=== PATIENT | female | born 1945 | race Caucasian/White ===

== ENCOUNTER 2018-02-28 05:43 | Inpatient (IN) ==
[2018-02-27 10:42] LABS: Basophils # 0.1 10*3/uL (0.0-0.2); Basophils % 0.7 % (0.0-0.8); Eosinophils # 0.2 10*3/uL (0.0-0.87); Eosinophils % 3.4 % (0.00-10.9); Hematocrit 36.5 VOL% (35.7-47.0); Hemoglobin 11.6 GM/DL (12.0-16.0); Immature Granulocytes % 0.4 %; Immature Granulocytes Absolute 0.03 #; Lymphocytes # 1.4 10*3/uL (1.4-4.0); Lymphocytes % 19.6 % (21.3-54.2); Mean Corpuscular HGB Conc 31.8 GM/DL (32-36); Mean Corpuscular Hemoglobin 29 PG (27-34); Mean Corpuscular Volume 91.7 FL (87-102); Mean Platelet Volume 10.6 FL (9.6-12.0); Monocytes # 0.6 10*3/uL (0.11-0.8); Neutrophils # 4.8 10*3/uL (1.4-7.4); Neutrophils % 67.9 % (38.7-73.9); Platelet Count 312 T/CUMM (130-400); Red Blood Count 3.98 MC/CUMM (3.8-5.5); Red Cell Distribution Width 13.2 % (9.3-17.3); White Blood Count 7.1 T/CUMM (4-12)
[2018-02-27 10:52] LABS: PT Patient Result 11.2 SECS; Partial Thromboplastin Time 33.6 SECS (0-40)
[2018-02-27 10:53] LABS: Apearance,Urine CLEAR (Clear); Bacteria,Urine Occasional /HPF (Few); Bilirubin,Urine Negative (Negative); Blood, Urine Negative (Negative); Glucose,Urine (UA) Negative (Negative); Ketones,Urine Negative (Negative); Mucus,Urine Occasional /LPF (Occasional); Nitrite,Urine Negative (Negative); Protein,Urine Negative; RBC,Urine 1 /HPF (0-4); Squamous Epithelial Cell,Urine Occasional /HPF (0-10); Urine Color Yellow (Yellow); Urine Urobilinogen < 2.0 EU/DL (0.2-1.0); WBC,Urine 1 /HPF (0-6)
[2018-02-27 11:16] LABS: Calcium 8.7 MG/DL (8.5-10.1); Osmolality,Calculated 288.7 MOS/KG (273-304); Potassium 4.5 MMOL/L (3.5-5.1)
[~2018-02-28 05:43] MED LIST: CEFUROXIME INJ 1,500 MG in SYRINGE 1 EACH IV ONE; PAPAVERINE 60 MG/2 ML VIAL ONE; SODIUM CHLORIDE 0.9% 1,000 ML IV PRN; TISSUE ADHESIVE 1 EACH APPLICATOR TOP ONE; VANCOMYCIN 1,000 MG VIAL ONE
[2018-02-28] MEDS ORDERED: CEFUROXIME 1,500 MG VIAL ONE (05:49)
[2018-02-28] MEDS ORDERED: HEPARIN/NACL 0.9% 2 UNITS/ML 500 ML IV ONE (05:58)
[2018-02-28] MEDS ORDERED: MIDAZOLAM 10 MG/2 ML VIAL ONE ×2 (05:58)
[2018-02-28] MEDS ORDERED: NITROGLYCERIN DRIP 50 MG/250 ML BOTTLE IV ONE (05:59)
[2018-02-28] MEDS: LACTATED RINGERS 1,000 ML IV SCH (06:20)
[2018-02-28] MEDS ORDERED: AMINOCAPROIC ACID 5,000 MG/20 ML VIAL IV ONE (06:27)
[2018-02-28 07:51] LABS: ABG Base Excess -0.7 MMOL/L (-2.5-2.5); ABG HCO3 23.9 MMOL/L (20-26); ABG PCO2 30.7 MM HG (35-48); ABG PH 7.469 (7.35-7.45); ABG TCO2 20.1 MMOL/L (23-27); Glucose Heart Surgery 167 MG/DL (74-106); Ionized Calcium Arterial 1.08 MMOL/L (1.21-1.46); PCO2 Patient Temp Arterial 30.7 MMHG; PH Patient Temp Arterial 7.469; Patient Temperature 37 CELCIUS; Potassium Heart/CVR 3.7 MMOL/L (3.5-5.1); Sodium Heart/CVR 141 MMOL/L (135-145)
[2018-02-28 07:58] LABS: Apearance,Urine CLEAR (Clear); Bacteria,Urine Occasional /HPF (Few); Bilirubin,Urine Negative (Negative); Blood, Urine Negative (Negative); Glucose,Urine (UA) Negative (Negative); Hyaline Casts,Urine 1 /LPF (0-3); Ketones,Urine Negative (Negative); Nitrite,Urine Negative (Negative); Protein,Urine Negative; RBC,Urine 1 /HPF (0-4); Squamous Epithelial Cell,Urine Occasional /HPF (0-10); Urine Color Yellow (Yellow); Urine Specific Gravity 1.014 (1.001-1.035); Urine Urobilinogen < 2.0 EU/DL (0.2-1.0); WBC,Urine 1 /HPF (0-6)
[2018-02-28] MEDS ORDERED: PHENYLEPHRINE DRIP 0 MG/0 ML PREMIX IV ONE (08:42)
[2018-02-28] MEDS ORDERED: NITROPRUSSIDE 50 MG/2 ML VIAL ONE (08:42)
[2018-02-28] MEDS ORDERED: CALCIUM CHLORIDE 1,000 MG/10 ML SYRINGE IV ONE (08:42)
[2018-02-28 08:56] LABS: Hematocrit Heart Surgery 19.4 PERCENT (37-47); PCO2 Patient Temp Venous 28.8 MM HG; PH Patient Temp Venous 7.513; PO2 Patient Temp Venous 32.5 MM HG; Potassium Heart/CVR 4.5 MMOL/L (3.5-5.1); VBG Base Excess 0.5 MEQ/L (0-4); VBG HCO3 24.6 MEQ/L (24-28); VBG PCO2 31.7 MMHG (41-51); VBG PH 7.482; VBG PO2 37.4 MMHG (17-40)
[2018-02-28 08:57] LABS: Hemoglobin Heart Surgery 6.2 G/DL (12.0-16.0)
[2018-02-28 09:29] LABS: PCO2 Patient Temp Venous 32.3 MM HG; PH Patient Temp Venous 7.471; PO2 Patient Temp Venous 33.3 MM HG; Potassium Heart/CVR 4.9 MMOL/L (3.5-5.1); VBG Base Excess 0.2 MEQ/L (0-4); VBG HCO3 24.3 MEQ/L (24-28); VBG Oxygen Saturation 67.3 %; VBG PCO2 32.3 MMHG (41-51); VBG PH 7.471; VBG PO2 33.3 MMHG (17-40)
[2018-02-28 09:31] LABS: Hemoglobin Heart Surgery 6.4 G/DL (12.0-16.0)
[2018-02-28] MEDS ORDERED: ALBUMIN 5% 12.5 GM/250 ML VIAL IV ONE (09:46)
[2018-02-28] MEDS ORDERED: THROMBIN TOPICAL (RECOMBINANT) 5,000 UNIT VIAL TOP ONE (09:49)
[2018-02-28 09:56] LABS: ABG Base Excess -1.3 MMOL/L (-2.5-2.5); ABG HCO3 23.4 MMOL/L (20-26); ABG PCO2 25.1 MM HG (35-48); ABG PH 7.524 (7.35-7.45); ABG TCO2 19.1 MMOL/L (23-27); Glucose Heart Surgery 309 MG/DL (74-106); Hematocrit Heart Surgery 26.3 PERCENT (37-47); Hemoglobin Heart Surgery 8.5 G/DL (12.0-16.0); Ionized Calcium Arterial 1.04 MMOL/L (1.21-1.46); PCO2 Patient Temp Arterial 25.1 MMHG; PH Patient Temp Arterial 7.524; Patient Temperature 37 CELCIUS; Potassium Heart/CVR 4.6 MMOL/L (3.5-5.1); Sodium Heart/CVR 131 MMOL/L (135-145)
[2018-02-28] MEDS ORDERED: ALBUMIN 25% 25 GM/100 ML VIAL IV ONE (09:57)
[2018-02-28] MEDS ORDERED: methylPREDNISolone SOD SUC 1,000 MG/8 ML VIAL ONE (09:57)
[2018-02-28] MEDS ORDERED: DEXTROSE 5% KCL 20 MEQ 20 MEQ/1,000 ML BAG IV ONE (09:57)
[2018-02-28] MEDS ORDERED: HEPARIN 10,000 UNIT/10 ML VIAL ONE (09:57)
[2018-02-28] MEDS ORDERED: MAGNESIUM SULFATE 10 GM/20 ML VIAL IV ONE (09:57)
[2018-02-28] MEDS ORDERED: SODIUM BICARBONATE 50 MEQ/50 ML SYRINGE IV ONE (09:57)
[2018-02-28] MEDS ORDERED: MANNITOL 12.5 GM/50 ML VIAL IV ONE (09:58)
[2018-02-28] MEDS ORDERED: PROTAMINE SULFATE 50 MG/5 ML VIAL IV ONE (09:58)
[2018-02-28] MEDS ORDERED: FUROSEMIDE 20 MG/2 ML VIAL ONE (09:58)
[2018-02-28] MEDS ORDERED: SODIUM CHLORIDE 0.9% 250 ML IV PRN (10:38)
[2018-02-28] MEDS ORDERED: ONDANSETRON 4 MG/2 ML VIAL IV PRN (10:38)
[2018-02-28] MEDS ORDERED: INSULIN REGULAR 100 UNIT/ML IV PRN (10:38)
[2018-02-28] MEDS ORDERED: CALCIUM CHLORIDE 1,000 MG/10 ML SYRINGE IV PRN (10:38)
[2018-02-28] MEDS ORDERED: CHLORHEXIDINE 4% SOLN 118 ML BOTTLE TOP PRN (10:38)
[2018-02-28] MEDS ORDERED: MORPHINE 10 MG/1 ML VIAL IV PRN (10:38)
[2018-02-28] MEDS ORDERED: ACETAMINOPHEN 650 MG SUPP RECTAL PRN (10:38)
[2018-02-28] MEDS ORDERED: MIDAZOLAM 2 MG/2 ML VIAL IV PRN (10:38)
[2018-02-28] MEDS ORDERED: MAGNESIUM SULF RIDER 4 GM in PREMIX 1 EACH IV PRN (10:38)
[2018-02-28] MEDS ORDERED: DEXTROSE 50% 25 GM/50 ML VIAL IV PRN ×2 (10:38)
[2018-02-28] MEDS: SODIUM CHLORIDE 0.45% 1,000 ML IV SCH ×2 (10:40)
[2018-02-28] MEDS ORDERED: ePHEDrine 50 MG/ML AMP ONE (10:49)
[2018-02-28] MEDS ORDERED: PHENYLEPHRINE 1 MG/10 ML SYRINGE IV ONE (10:49)
[2018-02-28] MEDS ORDERED: SEVOFLURANE 1 UNIT/15 MINUTE INH ONE (10:49)
[2018-02-28] MEDS ORDERED: PHENYLEPHRINE 10 MG/1 ML VIAL IV ONE (10:49)
[2018-02-28] MEDS ORDERED: ETOMIDATE 40 MG/20 ML VIAL IV ONE (10:49)
[2018-02-28] MEDS ORDERED: LACTATED RINGERS 1,000 ML IV ONE (10:50)
[2018-02-28] MEDS ORDERED: ROCURONIUM 100 MG/10 ML VIAL IV ONE (10:50)
[2018-02-28] MEDS ORDERED: hydrALAZINE 20 MG/1 ML VIAL ONE (10:51)
[2018-02-28] MEDS ORDERED: SODIUM CHLORIDE 0.9% 1,000 ML IV ONE (10:51)
[2018-02-28] MEDS ORDERED: SODIUM CHLORIDE 0.9% 500 ML IV ONE (10:51)
[2018-02-28] MEDS ORDERED: CALCIUM CHLORIDE 1,000 MG/10 ML VIAL IV ONE (10:51)
[2018-02-28] MEDS ORDERED: INSULIN REGULAR DRIP 100 ML IV SCH (11:00)
[2018-02-28 11:11] LABS: ABG Base Excess -1.8 MMOL/L (-2.5-2.5); ABG HCO3 22.9 MMOL/L (20-26); ABG Oxygen Saturation 98.9 % (95-100); ABG PCO2 39.8 MM HG (35-48); ABG PH 7.374 (7.35-7.45); ABG TCO2 20.9 MMOL/L (23-27); Glucose Heart Surgery 283 MG/DL (74-106); Hematocrit Heart Surgery 33.5 PERCENT (37-47); Hemoglobin Heart Surgery 10.9 G/DL (12.0-16.0); Potassium Heart/CVR 3.9 MMOL/L (3.5-5.1)
[2018-02-28 11:17] LABS: Basophils % 0.3 % (0.0-0.8); Eosinophils # 0.1 10*3/uL (0.0-0.87); Eosinophils % 0.9 % (0.00-10.9); Hematocrit 32.5 VOL% (35.7-47.0); Hemoglobin 10.3 GM/DL (12.0-16.0); Immature Granulocytes % 0.4 %; Immature Granulocytes Absolute 0.04 #; Lymphocytes % 10.3 % (21.3-54.2); Mean Corpuscular HGB Conc 31.7 GM/DL (32-36); Mean Corpuscular Hemoglobin 29 PG (27-34); Mean Corpuscular Volume 91.3 FL (87-102); Monocytes # 0.3 10*3/uL (0.11-0.8); Neutrophils # 8.5 10*3/uL (1.4-7.4); Neutrophils % 85.1 % (38.7-73.9); Platelet Count 257 T/CUMM (130-400); Red Blood Count 3.56 MC/CUMM (3.8-5.5)
[2018-02-28] MEDS ORDERED: NITROPRUSSIDE 100 MG in DEXTROSE 5% 250 ML IV PRN (11:17)
[2018-02-28 11:29] LABS: Blood Urea Nitrogen 15 MG/DL (7-18); Calcium 9.8 MG/DL (8.5-10.1); Glucose 277 MG/DL (74-106); Potassium 3.9 MMOL/L (3.5-5.1); Sodium 136 MMOL/L (136-145)
[2018-02-28 11:34] LABS: INR 1.1; PT Patient Result 12.3 SECS
[2018-02-28 11:35] LABS: Lactic Acid 2.8 MMOL/L (0.4-2.0)
[2018-02-28] MEDS: ALBUMIN 5% 12.5 GM in PREMIX 1 EACH IV PRN ×4 (11:35→13:20)
[2018-02-28] MEDS: POTASSIUM CHLORIDE RIDER 20 MEQ in PREMIX 1 EACH IV PRN ×3 (11:58→20:21)
[2018-02-28] MEDS ORDERED: ASPIRIN 325 MG TABLET NG ONE (12:12)
[2018-02-28] MEDS: POTASSIUM CHLORIDE RIDER 10 MEQ in PREMIX 1 EACH IV PRN (13:06)
[2018-02-28] MEDS: MORPHINE 4 MG/1 ML VIAL IV PRN (13:25)
[2018-02-28 18:54] LABS: ABG Base Excess 0.9 MMOL/L (-2.5-2.5); ABG HCO3 25.2 MMOL/L (20-26); ABG Oxygen Saturation 99.8 % (95-100); ABG PCO2 36.5 MM HG (35-48); ABG TCO2 22.8 MMOL/L (23-27); Glucose Heart Surgery 138 MG/DL (74-106); Hematocrit Heart Surgery 27.4 PERCENT (37-47); Hemoglobin Heart Surgery 8.8 G/DL (12.0-16.0); Potassium Heart/CVR 3.2 MMOL/L (3.5-5.1)
[2018-02-28] MEDS: CEFUROXIME INJ 1,500 MG in SYRINGE 1 EACH IV SCH (20:51)
[2018-02-28] MEDS: CHLORHEXIDINE 0.12% ORAL RINSE 60 ML BOTTLE SWISH/SPIT SCH (20:54)
[2018-03-01] MEDS: MORPHINE 4 MG/1 ML VIAL IV PRN ×3 (00:09→19:02)
[2018-03-01] MEDS: SODIUM CHLORIDE 0.45% 1,000 ML IV SCH ×2 (00:12→10:14)
[2018-03-01 03:20] LABS: Basophils % 0.1 % (0.0-0.8); Hematocrit 26.2 VOL% (35.7-47.0); Hemoglobin 8.3 GM/DL (12.0-16.0); Immature Granulocytes % 0.3 %; Immature Granulocytes Absolute 0.05 #; Lymphocytes # 0.7 10*3/uL (1.4-4.0); Mean Corpuscular HGB Conc 31.7 GM/DL (32-36); Mean Corpuscular Hemoglobin 29 PG (27-34); Mean Corpuscular Volume 91.6 FL (87-102); Mean Platelet Volume 11.2 FL (9.6-12.0); Monocytes # 0.7 10*3/uL (0.11-0.8); Monocytes % 4.6 % (1.7-12.7); Neutrophils # 13.2 10*3/uL (1.4-7.4); Platelet Count 233 T/CUMM (130-400); Red Blood Count 2.86 MC/CUMM (3.8-5.5); Red Cell Distribution Width 14.6 % (9.3-17.3); White Blood Count 14.7 T/CUMM (4-12)
[2018-03-01 03:36] LABS: Calcium 7.9 MG/DL (8.5-10.1); Osmolality,Calculated 279.5 MOS/KG (273-304); Potassium 3.8 MMOL/L (3.5-5.1)
[2018-03-01] MEDS: POTASSIUM CHLORIDE RIDER 20 MEQ in PREMIX 1 EACH IV PRN (05:16)
[2018-03-01] MEDS: MAGNESIUM SULF RIDER 2 GM in PREMIX 1 EACH IV PRN ×4 (05:25→11:27)
[2018-03-01] MEDS: CEFUROXIME INJ 1,500 MG in SYRINGE 1 EACH IV SCH ×2 (05:30→19:01)
[2018-03-01] MEDS: LACTATED RINGERS 1,000 ML IV SCH (05:30)
[2018-03-01] MEDS: POTASSIUM CHLORIDE RIDER 10 MEQ in PREMIX 1 EACH IV PRN (05:54)
[2018-03-01] MEDS: CHLORHEXIDINE 0.12% ORAL RINSE 60 ML BOTTLE SWISH/SPIT SCH ×2 (09:36→21:33)
[2018-03-01] MEDS: PANTOPRAZOLE 40 MG VIAL IV SCH (09:36)
[2018-03-01] MEDS: FUROSEMIDE 40 MG TABLET PO SCH (09:37)
[2018-03-01] MEDS: ASPIRIN EC 325 MG TABLET PO SCH (09:37)
[2018-03-01] MEDS ORDERED: diphenhydrAMINE CAP 25 MG CAPSULE PO PRN (10:17)
[2018-03-01] MEDS: CLOPIDOGREL 75 MG TABLET PO SCH (11:25)
[2018-03-01] MEDS: METOPROLOL TARTRATE 25 MG TABLET PO SCH ×2 (11:25→21:33)
[2018-03-01] MEDS: ATORVASTATIN 40 MG TABLET PO SCH ×2 (11:25→21:33)
[2018-03-01] MEDS: INSULIN REGULAR 100 UNIT/ML SUBCUT SCH ×3 (11:54→21:33)
[2018-03-02] MEDS: MORPHINE 4 MG/1 ML VIAL IV PRN (02:42)
[2018-03-02 04:44] LABS: Basophils % 0.1 % (0.0-0.8); Eosinophils % 0.2 % (0.00-10.9); Hematocrit 29.7 VOL% (35.7-47.0); Hemoglobin 9.3 GM/DL (12.0-16.0); Immature Granulocytes % 0.5 %; Immature Granulocytes Absolute 0.09 #; Mean Corpuscular HGB Conc 31.3 GM/DL (32-36); Mean Corpuscular Hemoglobin 29 PG (27-34); Mean Platelet Volume 11.7 FL (9.6-12.0); Monocytes # 1.4 10*3/uL (0.11-0.8); Monocytes % 8.8 % (1.7-12.7); Neutrophils # 13.8 10*3/uL (1.4-7.4); Neutrophils % 84.4 % (38.7-73.9); Platelet Count 266 T/CUMM (130-400); Red Blood Count 3.23 MC/CUMM (3.8-5.5); Red Cell Distribution Width 14.5 % (9.3-17.3); White Blood Count 16.4 T/CUMM (4-12)
[2018-03-02 04:58] LABS: Calcium 8.3 MG/DL (8.5-10.1); Osmolality,Calculated 281.7 MOS/KG (273-304); Potassium 4.2 MMOL/L (3.5-5.1)
[2018-03-02] MEDS: LACTATED RINGERS 1,000 ML IV SCH (05:02)
[2018-03-02 05:03] LABS: Risk Ratio 3.1; VLDL CHOLESTEROL 27.8 MG/DL
[2018-03-02] MEDS: INSULIN REGULAR 100 UNIT/ML SUBCUT SCH ×4 (09:07→20:11)
[2018-03-02] MEDS: FUROSEMIDE 40 MG TABLET PO SCH (09:08)
[2018-03-02] MEDS: ASPIRIN EC 325 MG TABLET PO SCH (09:08)
[2018-03-02] MEDS: INSULIN GLARGINE 100 UNIT/ML SUBCUT SCH (09:08)
[2018-03-02] MEDS: OMEGA 3 ACID ETHYL ESTERS 1 GM CAPSULE PO SCH (09:08)
[2018-03-02] MEDS: PANTOPRAZOLE 40 MG VIAL IV SCH (09:08)
[2018-03-02] MEDS: METOPROLOL TARTRATE 25 MG TABLET PO SCH ×2 (09:09→22:18)
[2018-03-02] MEDS: CLOPIDOGREL 75 MG TABLET PO SCH (09:09)
[2018-03-02] MEDS: CHLORHEXIDINE 0.12% ORAL RINSE 60 ML BOTTLE SWISH/SPIT SCH ×2 (09:13→21:23)
[2018-03-02] MEDS: NITROFURANTOIN MACRO/MONO 100 MG CAPSULE PO SCH ×2 (10:38→22:21)
[2018-03-02] MEDS: DOCUSATE SODIUM 100 MG CAPSULE PO SCH ×2 (10:38→21:23)
[2018-03-02] MEDS: BISACODYL 5 MG TABLET PO SCH (10:38)
[2018-03-02] MEDS: CARVEDILOL 6.25 MG TABLET PO SCH (21:23)
[2018-03-02] MEDS: ATORVASTATIN 40 MG TABLET PO SCH (21:23)
[2018-03-03 02:34] LABS: Basophils % 0.3 % (0.0-0.8); Eosinophils # 0.2 10*3/uL (0.0-0.87); Eosinophils % 1.4 % (0.00-10.9); Hematocrit 30.2 VOL% (35.7-47.0); Hemoglobin 9.6 GM/DL (12.0-16.0); Immature Granulocytes % 0.5 %; Immature Granulocytes Absolute 0.08 #; Lymphocytes # 1.6 10*3/uL (1.4-4.0); Lymphocytes % 10.8 % (21.3-54.2); Mean Corpuscular HGB Conc 31.8 GM/DL (32-36); Mean Corpuscular Hemoglobin 29 PG (27-34); Mean Corpuscular Volume 92.4 FL (87-102); Mean Platelet Volume 11.3 FL (9.6-12.0); Monocytes # 1.5 10*3/uL (0.11-0.8); Monocytes % 10.1 % (1.7-12.7); Neutrophils # 11.4 10*3/uL (1.4-7.4); Neutrophils % 76.9 % (38.7-73.9); Platelet Count 249 T/CUMM (130-400); Red Blood Count 3.27 MC/CUMM (3.8-5.5); Red Cell Distribution Width 13.9 % (9.3-17.3); White Blood Count 14.8 T/CUMM (4-12)
[2018-03-03 03:20] LABS: Calcium 8.4 MG/DL (8.5-10.1); Osmolality,Calculated 282.5 MOS/KG (273-304); Potassium 3.6 MMOL/L (3.5-5.1)
[2018-03-03] MEDS: LACTATED RINGERS 1,000 ML IV SCH (05:15)
[2018-03-03] MEDS: PANTOPRAZOLE 40 MG VIAL IV SCH (09:33)
[2018-03-03] MEDS: INSULIN REGULAR 100 UNIT/ML SUBCUT SCH ×3 (09:33→16:01)
[2018-03-03] MEDS: INSULIN GLARGINE 100 UNIT/ML SUBCUT SCH (09:33)
[2018-03-03] MEDS: CHLORHEXIDINE 0.12% ORAL RINSE 60 ML BOTTLE SWISH/SPIT SCH ×2 (09:34→20:56)
[2018-03-03] MEDS: ASPIRIN EC 325 MG TABLET PO SCH (09:34)
[2018-03-03] MEDS: OMEGA 3 ACID ETHYL ESTERS 1 GM CAPSULE PO SCH (09:34)
[2018-03-03] MEDS: NITROFURANTOIN MACRO/MONO 100 MG CAPSULE PO SCH ×2 (09:34→21:00)
[2018-03-03] MEDS: CARVEDILOL 6.25 MG TABLET PO SCH ×2 (09:34→20:55)
[2018-03-03] MEDS: BISACODYL 5 MG TABLET PO SCH (09:34)
[2018-03-03] MEDS: DOCUSATE SODIUM 100 MG CAPSULE PO SCH ×2 (09:34→20:58)
[2018-03-03] MEDS: FUROSEMIDE 40 MG TABLET PO SCH (09:34)
[2018-03-03] MEDS: CLOPIDOGREL 75 MG TABLET PO SCH (09:34)
[2018-03-03] MEDS: ATORVASTATIN 40 MG TABLET PO SCH (20:55)
[2018-03-04] MEDS: NITROFURANTOIN MACRO/MONO 100 MG CAPSULE PO SCH ×3 (00:51→22:15)
[2018-03-04] MEDS: INSULIN REGULAR 100 UNIT/ML SUBCUT SCH ×5 (00:51→20:59)
[2018-03-04] MEDS: OMEGA 3 ACID ETHYL ESTERS 1 GM CAPSULE PO SCH (09:34)
[2018-03-04] MEDS: CLOPIDOGREL 75 MG TABLET PO SCH (09:34)
[2018-03-04] MEDS: CARVEDILOL 6.25 MG TABLET PO SCH ×2 (09:34→21:00)
[2018-03-04] MEDS: ASPIRIN EC 325 MG TABLET PO SCH (09:34)
[2018-03-04] MEDS: FUROSEMIDE 40 MG TABLET PO SCH (09:34)
[2018-03-04] MEDS: PANTOPRAZOLE 40 MG VIAL IV SCH (09:36)
[2018-03-04] MEDS: INSULIN GLARGINE 100 UNIT/ML SUBCUT SCH (09:36)
[2018-03-04] MEDS: LACTATED RINGERS 1,000 ML IV SCH (09:38)
[2018-03-04] MEDS: DOCUSATE SODIUM 100 MG CAPSULE PO SCH ×2 (09:38→20:59)
[2018-03-04] MEDS: BISACODYL 5 MG TABLET PO SCH (09:39)
[2018-03-04] MEDS: CHLORHEXIDINE 0.12% ORAL RINSE 60 ML BOTTLE SWISH/SPIT SCH ×2 (10:04→21:00)
[2018-03-04] MEDS: CIPROFLOXACIN 500 MG TABLET PO SCH ×2 (16:40→21:00)
[2018-03-04] MEDS: ATORVASTATIN 40 MG TABLET PO SCH (20:59)
[2018-03-05 05:07] LABS: Basophils % 0.3 % (0.0-0.8); Eosinophils # 0.3 10*3/uL (0.0-0.87); Eosinophils % 3.1 % (0.00-10.9); Hematocrit 27.3 VOL% (35.7-47.0); Hemoglobin 8.6 GM/DL (12.0-16.0); Immature Granulocytes % 0.2 %; Immature Granulocytes Absolute 0.02 #; Lymphocytes # 1.5 10*3/uL (1.4-4.0); Lymphocytes % 15.6 % (21.3-54.2); Mean Corpuscular HGB Conc 31.5 GM/DL (32-36); Mean Corpuscular Hemoglobin 29 PG (27-34); Mean Corpuscular Volume 91.6 FL (87-102); Mean Platelet Volume 11.5 FL (9.6-12.0); Monocytes # 1.1 10*3/uL (0.11-0.8); Monocytes % 11.6 % (1.7-12.7); Neutrophils # 6.6 10*3/uL (1.4-7.4); Neutrophils % 69.2 % (38.7-73.9); Platelet Count 284 T/CUMM (130-400); Red Blood Count 2.98 MC/CUMM (3.8-5.5); Red Cell Distribution Width 13.2 % (9.3-17.3); White Blood Count 9.6 T/CUMM (4-12)
[2018-03-05 06:00] LABS: Calcium 8.1 MG/DL (8.5-10.1); Osmolality,Calculated 283.4 MOS/KG (273-304); Potassium 2.9 MMOL/L (3.5-5.1)
[2018-03-05] MEDS ORDERED: POTASSIUM CHLORIDE 20 MEQ TABLET PO ONE ×3 (08:00→12:00)
[2018-03-05] MEDS: ASPIRIN EC 325 MG TABLET PO SCH (08:45)
[2018-03-05] MEDS: CIPROFLOXACIN 500 MG TABLET PO SCH ×2 (08:45→21:53)
[2018-03-05] MEDS: CHLORHEXIDINE 0.12% ORAL RINSE 60 ML BOTTLE SWISH/SPIT SCH ×2 (08:46→21:51)
[2018-03-05] MEDS: DOCUSATE SODIUM 100 MG CAPSULE PO SCH ×2 (08:46→21:53)
[2018-03-05] MEDS: CLOPIDOGREL 75 MG TABLET PO SCH (08:46)
[2018-03-05] MEDS: FUROSEMIDE 40 MG TABLET PO SCH (08:46)
[2018-03-05] MEDS: CARVEDILOL 6.25 MG TABLET PO SCH ×2 (08:46→21:53)
[2018-03-05] MEDS: OMEGA 3 ACID ETHYL ESTERS 1 GM CAPSULE PO SCH (08:46)
[2018-03-05] MEDS: NITROFURANTOIN MACRO/MONO 100 MG CAPSULE PO SCH ×3 (08:46→21:52)
[2018-03-05] MEDS: PANTOPRAZOLE 40 MG TABLET PO SCH (08:46)
[2018-03-05] MEDS: INSULIN REGULAR 100 UNIT/ML SUBCUT SCH ×4 (08:47→21:52)
[2018-03-05] MEDS: INSULIN GLARGINE 100 UNIT/ML SUBCUT SCH (08:47)
[2018-03-05] MEDS: BISACODYL 5 MG TABLET PO SCH (08:47)
[2018-03-05] MEDS: LACTATED RINGERS 1,000 ML IV SCH (09:25)
[2018-03-05] MEDS ORDERED: MAGNESIUM SULF RIDER 2 GM in PREMIX 1 EACH IV ONE (11:38)
[2018-03-05] MEDS: ATORVASTATIN 40 MG TABLET PO SCH (21:53)
[2018-03-06 04:37] LABS: Basophils # 0.1 10*3/uL (0.0-0.2); Basophils % 0.6 % (0.0-0.8); Eosinophils # 0.4 10*3/uL (0.0-0.87); Eosinophils % 3.8 % (0.00-10.9); Hematocrit 29.9 VOL% (35.7-47.0); Hemoglobin 9.5 GM/DL (12.0-16.0); Immature Granulocytes % 0.5 %; Immature Granulocytes Absolute 0.05 #; Lymphocytes # 2.1 10*3/uL (1.4-4.0); Lymphocytes % 20.3 % (21.3-54.2); Mean Corpuscular HGB Conc 31.8 GM/DL (32-36); Mean Corpuscular Hemoglobin 29 PG (27-34); Mean Corpuscular Volume 91.7 FL (87-102); Monocytes # 1.2 10*3/uL (0.11-0.8); Monocytes % 11.6 % (1.7-12.7); Neutrophils # 6.6 10*3/uL (1.4-7.4); Neutrophils % 63.2 % (38.7-73.9); Platelet Count 323 T/CUMM (130-400); Red Blood Count 3.26 MC/CUMM (3.8-5.5); Red Cell Distribution Width 13.3 % (9.3-17.3); White Blood Count 10.5 T/CUMM (4-12)
[2018-03-06 04:53] LABS: Calcium 8.4 MG/DL (8.5-10.1); Osmolality,Calculated 286.4 MOS/KG (273-304); Potassium 3.7 MMOL/L (3.5-5.1)
[2018-03-06 07:53] VITALS: BP 146/87
[2018-03-06] MEDS: FUROSEMIDE 40 MG TABLET PO SCH (09:43)
[2018-03-06] MEDS: ASPIRIN EC 325 MG TABLET PO SCH (09:43)
[2018-03-06] MEDS: INSULIN GLARGINE 100 UNIT/ML SUBCUT SCH (09:43)
[2018-03-06] MEDS: PANTOPRAZOLE 40 MG TABLET PO SCH (09:43)
[2018-03-06] MEDS: OMEGA 3 ACID ETHYL ESTERS 1 GM CAPSULE PO SCH (09:43)
[2018-03-06] MEDS: CLOPIDOGREL 75 MG TABLET PO SCH (09:43)
[2018-03-06] MEDS: CARVEDILOL 6.25 MG TABLET PO SCH (09:43)
[2018-03-06] MEDS: INSULIN REGULAR 100 UNIT/ML SUBCUT SCH (09:47)
[2018-03-06] MEDS: DOCUSATE SODIUM 100 MG CAPSULE PO SCH (09:48)
[2018-03-06] MEDS: BISACODYL 5 MG TABLET PO SCH (09:48)
[2018-03-06] MEDS: LACTATED RINGERS 1,000 ML IV SCH (09:49)
[2018-03-06] MEDS: CHLORHEXIDINE 0.12% ORAL RINSE 60 ML BOTTLE SWISH/SPIT SCH (09:49)
[2018-03-06] MEDS: NITROFURANTOIN MACRO/MONO 100 MG CAPSULE PO SCH (09:52)
== END 2018-03-06 13:03 | disposition swing bed (61) | DRG 236 ==
LOC: N.SDSINP 05:43 → N.CVR 07:59 → N.ICU 03-01 06:57 → N.TELES 03-01 14:00
PROVIDERS: ADMIT Thoracic Surgery (Cardiothoracic Vascular Surgery); ATTEND Thoracic Surgery (Cardiothoracic Vascular Surgery)

== ENCOUNTER 2018-11-18 16:07 | Inpatient (IN) ==
[2018-11-18 17:05] LABS: Basophils # 0.1 10*3/uL (0.0-0.2); Basophils % 0.8 % (0.0-0.8); Eosinophils # 0.1 10*3/uL (0.0-0.87); Eosinophils % 1.2 % (0.00-10.9); Immature Granulocytes % 0.2 %; Immature Granulocytes Absolute 0.02 #; Lymphocytes # 1.2 10*3/uL (1.4-4.0); Mean Corpuscular HGB Conc 32.1 GM/DL (32-36); Mean Corpuscular Volume 92.7 FL (87-102); Mean Platelet Volume 10.9 FL (9.6-12.0); Monocytes % 6.3 % (1.7-12.7); Neutrophils % 78.5 % (38.7-73.9); Platelet Count 275 T/CUMM (130-400); Red Blood Count 5.72 MC/CUMM (3.8-5.5); Red Cell Distribution Width 14.6 % (9.3-17.3); White Blood Count 8.8 T/CUMM (4-12)
[2018-11-18 17:13] LABS: Apearance,Urine CLOUDY (Clear); Bacteria,Urine Many /HPF (Few); Bilirubin,Urine Negative (Negative); Blood, Urine Small mg/dL (Negative); Glucose,Urine (UA) Negative (Negative); Ketones,Urine 20 mg/dL (Negative); Mucus,Urine Occasional /LPF (Occasional); Nitrite,Urine Negative (Negative); Protein,Urine 30 MG/DL; RBC,Urine 2 /HPF (0-4); Squamous Epithelial Cell,Urine Occasional /HPF (0-10); Urine Color Yellow (Yellow); Urine Specific Gravity 1.025 (1.001-1.035); Urine Urobilinogen < 2.0 EU/DL (0.2-1.0); WBC,Urine 54 /HPF (0-6)
[2018-11-18 17:19] LABS: Barbiturates Screen,Urine Negative (Negative); Benzodiazepines Screen,Urine Negative (Negative); Cannabinoid Screen,Urine Negative (Negative); Opiate Screen,Urine Negative (Negative); Phencyclidine Screen,Urine Negative (Negative)
[2018-11-18 17:37] LABS: Alanine Aminotransferase 24 U/L (13-56); Albumin 4.2 G/DL (3.4-5.0); Alkaline Phosphatase 81 U/L (45-117); Aspartate Amino Transferase 25 U/L (0-37); Blood Urea Nitrogen 35 MG/DL (7-18); Glucose 145 MG/DL (74-106); Osmolality,Calculated 287.5 MOS/KG (273-304); Thyroid Stimulating Hormone 0.683 uIU/ml (0.358-3.74); Total Protein 8.8 G/DL (6.4-8.3); Troponin I < 0.015 NG/ML (0.00-0.045)
[2018-11-18] MEDS ORDERED: LEVOFLOXACIN INJ 750 MG in PREMIX 1 EACH IV STA (18:00)
[2018-11-18 18:06] LABS: PT Patient Result 10.9 SECS; Partial Thromboplastin Time 22.5 SECS (0-40)
[2018-11-18] MEDS ORDERED: DOXYCYCLINE HYCLATE INJ 100 MG in SODIUM CHLORIDE 0.9% 100 ML IV STA (18:46)
[2018-11-18] MEDS ORDERED: methylPREDNISolone SOD SUC 125 MG/2 ML VIAL ONE (18:46)
[2018-11-18] MEDS ORDERED: methylPREDNISolone SOD SUC 125 MG/2 ML VIAL IV STA (18:54)
[2018-11-18] MEDS ORDERED: GLUCAGON 1 MG VIAL IM PRN (19:19)
[2018-11-18] MEDS ORDERED: guaiFENesin/DM ER 600-30 MG TABLET PO PRN (19:19)
[2018-11-18] MEDS ORDERED: ONDANSETRON 4 MG/2 ML VIAL IV PRN (19:19)
[2018-11-18] MEDS ORDERED: diphenhydrAMINE CAP 25 MG CAPSULE PO PRN (19:19)
[2018-11-18] MEDS ORDERED: DEXTROSE 50% 25 GM/50 ML VIAL IV PRN (19:19)
[2018-11-18] MEDS ORDERED: DOCUSATE SODIUM 100 MG CAPSULE PO PRN (19:19)
[2018-11-18] MEDS ORDERED: ZALEPLON 5 MG CAPSULE PO PRN (19:19)
[2018-11-18] MEDS: INSULIN LISPRO 100 UNIT/ML SUBCUT SCH (21:03)
[2018-11-18] MEDS ORDERED: hydrALAZINE 20 MG/1 ML VIAL IV ONE (21:14)
[2018-11-18] MEDS ORDERED: SODIUM CHLORIDE 0.9% 500 ML IV ONE (21:14)
[2018-11-18] MEDS: ENOXAPARIN 40 MG/0.4 ML SYRINGE SUBCUT SCH (21:23)
[2018-11-18] MEDS: SODIUM CHLORIDE 0.9% 1,000 ML IV SCH (21:23)
[2018-11-18] MEDS: POTASSIUM CHLORIDE 20 MEQ TABLET PO SCH (22:18)
[2018-11-19 06:38] LABS: Hematocrit 45.2 VOL% (35.7-47.0); Hemoglobin 14.9 GM/DL (12.0-16.0); Immature Granulocytes % 0.2 %; Immature Granulocytes Absolute 0.01 #; Lymphocytes # 0.6 10*3/uL (1.4-4.0); Lymphocytes % 11.1 % (21.3-54.2); Mean Corpuscular Volume 90.6 FL (87-102); Mean Platelet Volume 11.6 FL (9.6-12.0); Monocytes % 2.4 % (1.7-12.7); Neutrophils % 86.3 % (38.7-73.9); Platelet Count 244 T/CUMM (130-400); Red Blood Count 4.99 MC/CUMM (3.8-5.5); Red Cell Distribution Width 14.6 % (9.3-17.3); White Blood Count 5.5 T/CUMM (4-12)
[2018-11-19 07:08] LABS: Albumin 3.6 G/DL (3.4-5.0); Bilirubin,Total 0.5 MG/DL (0.2-1.0); Calcium 9.1 MG/DL (8.5-10.1); Osmolality,Calculated 289.4 MOS/KG (273-304); Total Protein 7.3 G/DL (6.4-8.3)
[2018-11-19] MEDS: POTASSIUM CHLORIDE 20 MEQ TABLET PO SCH ×2 (08:26→20:21)
[2018-11-19] MEDS: ACETAMINOPHEN 325 MG TABLET PO PRN (08:26)
[2018-11-19] MEDS: DOXYCYCLINE HYCLATE INJ 100 MG in SODIUM CHLORIDE 0.9% 100 ML IV SCH ×2 (08:27→20:22)
[2018-11-19] MEDS: PANTOPRAZOLE 40 MG TABLET PO SCH (08:28)
[2018-11-19] MEDS: INSULIN LISPRO 100 UNIT/ML SUBCUT SCH ×4 (08:28→20:23)
[2018-11-19] MEDS: SODIUM CHLORIDE 0.9% 1,000 ML IV SCH (10:02)
[2018-11-19] MEDS ORDERED: traZODone 50 MG TABLET PO PRN (12:12)
[2018-11-19] MEDS ORDERED: hydrALAZINE 20 MG/1 ML VIAL IV PRN (12:14)
[2018-11-19] MEDS ORDERED: CARVEDILOL 6.25 MG TABLET PO SCH (12:30)
[2018-11-19] MEDS: ALLOPURINOL 300 MG TABLET PO SCH (12:33)
[2018-11-19] MEDS: CLOPIDOGREL 75 MG TABLET PO SCH (12:33)
[2018-11-19] MEDS: ISOSORBIDE MONONITRATE 30 MG TABLET PO SCH (12:34)
[2018-11-19] MEDS: ESCITALOPRAM 10 MG TABLET PO SCH (12:35)
[2018-11-19] MEDS: FLUTICASONE 50 MCG NASAL SPRAY 16 GM BOTTLE BOTH NARES SCH (12:38)
[2018-11-19] MEDS: OMEGA 3 ACID ETHYL ESTERS 1 GM CAPSULE PO SCH (13:28)
[2018-11-19] MEDS: CARVEDILOL 6.25 MG TABLET PO SCH (16:19)
[2018-11-19] MEDS: ENOXAPARIN 40 MG/0.4 ML SYRINGE SUBCUT SCH (20:22)
[2018-11-19] MEDS: CILOSTAZOL 100 MG TABLET PO SCH (20:22)
[2018-11-20] MEDS: SODIUM CHLORIDE 0.9% 1,000 ML IV SCH (00:11)
[2018-11-20 06:56] LABS: Basophils # 0.1 10*3/uL (0.0-0.2); Basophils % 0.9 % (0.0-0.8); Eosinophils # 0.1 10*3/uL (0.0-0.87); Eosinophils % 1.5 % (0.00-10.9); Hematocrit 40.6 VOL% (35.7-47.0); Immature Granulocytes % 0.2 %; Immature Granulocytes Absolute 0.02 #; Lymphocytes # 1.6 10*3/uL (1.4-4.0); Lymphocytes % 19.8 % (21.3-54.2); Mean Corpuscular Volume 94.2 FL (87-102); Mean Platelet Volume 11.3 FL (9.6-12.0); Monocytes % 7.7 % (1.7-12.7); Neutrophils % 69.9 % (38.7-73.9); Platelet Count 201 T/CUMM (130-400); Red Blood Count 4.31 MC/CUMM (3.8-5.5); White Blood Count 8.1 T/CUMM (4-12)
[2018-11-20 07:17] LABS: Calcium 8.6 MG/DL (8.5-10.1); Osmolality,Calculated 298.6 MOS/KG (273-304)
[2018-11-20] MEDS: INSULIN LISPRO 100 UNIT/ML SUBCUT SCH ×2 (07:41→12:00)
[2018-11-20] MEDS: ACETAMINOPHEN 325 MG TABLET PO PRN (08:51)
[2018-11-20] MEDS: POTASSIUM CHLORIDE 20 MEQ TABLET PO SCH (08:51)
[2018-11-20] MEDS: OMEGA 3 ACID ETHYL ESTERS 1 GM CAPSULE PO SCH (08:51)
[2018-11-20] MEDS: PANTOPRAZOLE 40 MG TABLET PO SCH (08:51)
[2018-11-20] MEDS: ALLOPURINOL 300 MG TABLET PO SCH (08:52)
[2018-11-20] MEDS: ISOSORBIDE MONONITRATE 30 MG TABLET PO SCH (08:56)
[2018-11-20] MEDS: CARVEDILOL 6.25 MG TABLET PO SCH (08:57)
[2018-11-20] MEDS: CLOPIDOGREL 75 MG TABLET PO SCH (08:57)
[2018-11-20] MEDS: ESCITALOPRAM 10 MG TABLET PO SCH (08:57)
[2018-11-20] MEDS: CILOSTAZOL 100 MG TABLET PO SCH (08:57)
[2018-11-20] MEDS ORDERED: COLCHICINE 0.6 MG CAPSULE PO SCH (09:00)
[2018-11-20] MEDS: FLUTICASONE 50 MCG NASAL SPRAY 16 GM BOTTLE BOTH NARES SCH (09:01)
[2018-11-20] MEDS: DOXYCYCLINE HYCLATE INJ 100 MG in SODIUM CHLORIDE 0.9% 100 ML IV SCH (09:21)
[2018-11-20] MEDS ORDERED: CEFUROXIME 500 MG TABLET PO SCH (11:30)
[2018-11-20] MEDS ORDERED: MAGNESIUM OXIDE 400 MG TABLET PO SCH (11:30)
[2018-11-20 12:00] VITALS: BP 147/76
== END 2018-11-20 14:15 | disposition home or self-care (01) | DRG 689 ==
LOC: N.ED 16:07 → N.EDINP 19:19 → SUATTDRO 19:19 → N.2E 20:16
PROVIDERS: ADMIT Internal Medicine; ATTEND Internal Medicine

== ENCOUNTER 2019-04-26 10:53 | Inpatient (IN) ==
[2019-04-26] MEDS ORDERED: GLUCAGON 1 MG VIAL IM PRN (13:13)
[2019-04-26] MEDS ORDERED: ONDANSETRON 4 MG/2 ML VIAL IV PRN (13:13)
[2019-04-26] MEDS ORDERED: ACETAMINOPHEN 325 MG TABLET PO PRN (13:13)
[2019-04-26] MEDS ORDERED: traZODone 50 MG TABLET PO PRN (13:15)
[2019-04-26] MEDS ORDERED: DEXTROSE 10% 250 ML BAG IV PRN (13:23)
[2019-04-26] MEDS ORDERED: MEROPENEM 500 MG in SODIUM CHLORIDE 0.9% 100 ML IV SCH (13:30)
[2019-04-26] MEDS ORDERED: ENOXAPARIN 30 MG/0.3 ML SYRINGE SUBCUT SCH (13:30)
[2019-04-26] MEDS: SODIUM CHLORIDE 0.45% 1,000 ML IV SCH ×2 (13:53→22:00)
[2019-04-26] MEDS: PANTOPRAZOLE 40 MG TABLET PO SCH (13:53)
[2019-04-26] MEDS: MEROPENEM 500 MG in SODIUM CHLORIDE 0.9% 100 ML IV SCH (13:54)
[2019-04-26] MEDS ORDERED: GENTAMICIN INJ 320 MG in SODIUM CHLORIDE 0.9% 100 ML IV SCH (14:30)
[2019-04-26] MEDS: INSULIN LISPRO 100 UNIT/ML SUBCUT SCH ×2 (16:40→20:24)
[2019-04-26 18:31] LABS: Apearance,Urine CLEAR (Clear); Bacteria,Urine Occasional /HPF (Few); Bilirubin,Urine Negative (Negative); Blood, Urine Negative (Negative); Glucose,Urine (UA) Negative (Negative); Ketones,Urine Negative (Negative); Mucus,Urine Occasional /LPF (Occasional); Nitrite,Urine Negative (Negative); Protein,Urine Negative; RBC,Urine 2 /HPF (0-4); Squamous Epithelial Cell,Urine Occasional /HPF (0-10); Urine Color Straw (Yellow); Urine Specific Gravity 1.006 (1.001-1.035); Urine Urobilinogen < 2.0 EU/DL (0.2-1.0); WBC,Urine 1 /HPF (0-6)
[2019-04-26] MEDS: cilostazoL 100 MG TABLET PO SCH (20:23)
[2019-04-26] MEDS ORDERED: hydrALAZINE 20 MG/1 ML VIAL IV PRN (21:48)
[2019-04-26] MEDS ORDERED: carvediloL 6.25 MG TABLET PO ONE (21:55)
[2019-04-27] MEDS: MEROPENEM 500 MG in SODIUM CHLORIDE 0.9% 100 ML IV SCH ×3 (04:05→20:43)
[2019-04-27 04:31] LABS: Basophils % 0.5 % (0.0-0.8); Eosinophils # 0.4 10*3/uL (0.0-0.87); Eosinophils % 5.5 % (0.00-10.9); Hematocrit 35.6 VOL% (35.7-47.0); Hemoglobin 11.5 GM/DL (12.0-16.0); Immature Granulocytes % 0.4 %; Immature Granulocytes Absolute 0.03 #; Lymphocytes # 1.4 10*3/uL (1.4-4.0); Lymphocytes % 18.7 % (21.3-54.2); Mean Corpuscular HGB Conc 32.3 GM/DL (32-36); Mean Corpuscular Volume 95.2 FL (87-102); Mean Platelet Volume 10.8 FL (9.6-12.0); Monocytes % 8.8 % (1.7-12.7); Neutrophils % 66.1 % (38.7-73.9); Platelet Count 261 T/CUMM (130-400); Red Blood Count 3.74 MC/CUMM (3.8-5.5); Red Cell Distribution Width 12.9 % (9.3-17.3); White Blood Count 7.7 T/CUMM (4-12)
[2019-04-27 05:09] LABS: Blood Urea Nitrogen 17 MG/DL (7-18); Calcium 8.1 MG/DL (8.5-10.1); Estimated Glom Filtration Rate 48 ML/MIN; Glucose 110 MG/DL (74-106); Osmolality,Calculated 285.1 MOS/KG (273-304); Troponin I < 0.015 NG/ML (0.00-0.045)
[2019-04-27] MEDS: SODIUM CHLORIDE 0.45% 1,000 ML IV SCH ×3 (07:15→20:56)
[2019-04-27] MEDS: INSULIN LISPRO 100 UNIT/ML SUBCUT SCH ×4 (07:17→20:41)
[2019-04-27] MEDS: MAGNESIUM SULF RIDER 4 GM in PREMIX 1 EACH IV SCH ×2 (08:59→16:28)
[2019-04-27] MEDS: COLCHICINE 0.6 MG CAPSULE PO SCH (08:59)
[2019-04-27] MEDS: cilostazoL 100 MG TABLET PO SCH ×2 (08:59→20:52)
[2019-04-27] MEDS: CLOPIDOGREL 75 MG TABLET PO SCH (08:59)
[2019-04-27] MEDS: allopurinoL 300 MG TABLET PO SCH (08:59)
[2019-04-27] MEDS: carvediloL 6.25 MG TABLET PO SCH ×2 (08:59→16:29)
[2019-04-27] MEDS: PANTOPRAZOLE 40 MG TABLET PO SCH (08:59)
[2019-04-27] MEDS: ENOXAPARIN 40 MG/0.4 ML SYRINGE SUBCUT SCH (12:09)
[2019-04-27] MEDS: MAGNESIUM OXIDE 400 MG TABLET PO SCH ×2 (13:08→20:53)
[2019-04-27] MEDS: GENTAMICIN INJ 320 MG in SODIUM CHLORIDE 0.9% 100 ML IV SCH (17:35)
[2019-04-28] MEDS: SODIUM CHLORIDE 0.45% 1,000 ML IV SCH ×3 (02:02→15:25)
[2019-04-28] MEDS: MEROPENEM 500 MG in SODIUM CHLORIDE 0.9% 100 ML IV SCH ×3 (04:17→20:52)
[2019-04-28 05:57] LABS: Basophils # 0.1 10*3/uL (0.0-0.2); Basophils % 0.7 % (0.0-0.8); Eosinophils # 0.6 10*3/uL (0.0-0.87); Eosinophils % 7.6 % (0.00-10.9); Hematocrit 35.5 VOL% (35.7-47.0); Hemoglobin 11.6 GM/DL (12.0-16.0); Immature Granulocytes % 0.1 %; Immature Granulocytes Absolute 0.01 #; Lymphocytes # 1.2 10*3/uL (1.4-4.0); Lymphocytes % 15.8 % (21.3-54.2); Mean Corpuscular HGB Conc 32.7 GM/DL (32-36); Mean Corpuscular Volume 94.4 FL (87-102); Mean Platelet Volume 10.8 FL (9.6-12.0); Monocytes % 7.9 % (1.7-12.7); Neutrophils % 67.9 % (38.7-73.9); Platelet Count 269 T/CUMM (130-400); Red Blood Count 3.76 MC/CUMM (3.8-5.5); Red Cell Distribution Width 13.2 % (9.3-17.3); White Blood Count 7.3 T/CUMM (4-12)
[2019-04-28 06:26] LABS: Calcium 8.3 MG/DL (8.5-10.1); Osmolality,Calculated 283.1 MOS/KG (273-304)
[2019-04-28] MEDS: INSULIN LISPRO 100 UNIT/ML SUBCUT SCH ×4 (07:28→21:29)
[2019-04-28] MEDS: MAGNESIUM OXIDE 400 MG TABLET PO SCH ×2 (08:18→20:53)
[2019-04-28] MEDS: PANTOPRAZOLE 40 MG TABLET PO SCH (08:18)
[2019-04-28] MEDS: cilostazoL 100 MG TABLET PO SCH ×2 (08:18→20:53)
[2019-04-28] MEDS: allopurinoL 300 MG TABLET PO SCH (08:18)
[2019-04-28] MEDS: CLOPIDOGREL 75 MG TABLET PO SCH (08:18)
[2019-04-28] MEDS: carvediloL 6.25 MG TABLET PO SCH ×2 (08:18→17:01)
[2019-04-28] MEDS: COLCHICINE 0.6 MG CAPSULE PO SCH (08:18)
[2019-04-28] MEDS: ENOXAPARIN 40 MG/0.4 ML SYRINGE SUBCUT SCH (11:39)
[2019-04-28] MEDS ORDERED: MAGNESIUM SULF RIDER 2 GM in PREMIX 1 EACH IV PRN (16:54)
[2019-04-28] MEDS ORDERED: MAGNESIUM SULF RIDER 4 GM in PREMIX 1 EACH IV PRN (16:54)
[2019-04-28] MEDS: GENTAMICIN INJ 320 MG in SODIUM CHLORIDE 0.9% 100 ML IV SCH (17:02)
[2019-04-29] MEDS: MEROPENEM 500 MG in SODIUM CHLORIDE 0.9% 100 ML IV SCH ×2 (04:52→11:41)
[2019-04-29] MEDS: SODIUM CHLORIDE 0.45% 1,000 ML IV SCH ×2 (07:03→08:29)
[2019-04-29] MEDS: INSULIN LISPRO 100 UNIT/ML SUBCUT SCH ×2 (07:27→11:29)
[2019-04-29] MEDS: COLCHICINE 0.6 MG CAPSULE PO SCH (08:28)
[2019-04-29] MEDS: cilostazoL 100 MG TABLET PO SCH (08:28)
[2019-04-29] MEDS: allopurinoL 300 MG TABLET PO SCH (08:28)
[2019-04-29] MEDS: CLOPIDOGREL 75 MG TABLET PO SCH (08:29)
[2019-04-29] MEDS: MAGNESIUM OXIDE 400 MG TABLET PO SCH (08:29)
[2019-04-29] MEDS: PANTOPRAZOLE 40 MG TABLET PO SCH (08:29)
[2019-04-29] MEDS: carvediloL 6.25 MG TABLET PO SCH (08:29)
[2019-04-29] MEDS: ENOXAPARIN 40 MG/0.4 ML SYRINGE SUBCUT SCH (11:41)
[2019-04-29 12:43] VITALS: BP 117/62
== END 2019-04-29 14:03 | disposition home or self-care (01) | DRG 689 ==
LOC: N.CC 12:18 → SUATTDRO 12:18 → N.2E 04-27 14:31
PROVIDERS: ADMIT Internal Medicine; ATTEND Phlebology

== ENCOUNTER 2019-05-21 13:01 | Inpatient (IN) ==
[2019-05-21 13:49] LABS: Basophils # 0.1 10*3/uL (0.0-0.2); Basophils % 0.5 % (0.0-0.8); Eosinophils # 0.3 10*3/uL (0.0-0.87); Eosinophils % 2.9 % (0.00-10.9); Hematocrit 22.9 VOL% (35.7-47.0); Hemoglobin 6.8 GM/DL (12.0-16.0); Immature Granulocytes % 0.5 %; Immature Granulocytes Absolute 0.05 #; Lymphocytes # 1.5 10*3/uL (1.4-4.0); Lymphocytes % 13.3 % (21.3-54.2); Mean Corpuscular HGB Conc 29.7 GM/DL (32-36); Mean Corpuscular Volume 94.6 FL (87-102); Mean Platelet Volume 9.6 FL (9.6-12.0); Monocytes % 6.6 % (1.7-12.7); NRBC # 0.02 10*3/uL; Neutrophils % 76.2 % (38.7-73.9); Platelet Count 507 T/CUMM (130-400); Red Blood Count 2.42 MC/CUMM (3.8-5.5); Red Cell Distribution Width 15.5 % (9.3-17.3)
[2019-05-21 14:14] LABS: PT Patient Result 11.2 SECS (9.6-12.2); Partial Thromboplastin Time 31.6 SECS (20.8-36.0)
[2019-05-21 14:15] LABS: Albumin 3.8 G/DL (3.4-5.0); Bilirubin,Total 0.6 MG/DL (0.2-1.0); Calcium 8.5 MG/DL (8.5-10.1); Osmolality,Calculated 276.8 MOS/KG (273-304); Total Protein 7.3 G/DL (6.4-8.3)
[2019-05-21] MEDS ORDERED: GLUCAGON 1 MG VIAL IM PRN (15:05)
[2019-05-21] MEDS ORDERED: DEXTROSE 10% 250 ML BAG IV PRN (15:05)
[2019-05-21] MEDS ORDERED: PANTOPRAZOLE INJ 200 MG in SODIUM CHLORIDE 0.9% 250 ML IV SCH (16:00)
[2019-05-21] MEDS ORDERED: INFLUENZA VIRUS VACCINE 0.5 ML SYRINGE IM ONE (17:24)
[2019-05-21] MEDS: DEXTROSE 5% NACL 0.45% 1,000 ML IV SCH (17:27)
[2019-05-21 18:13] LABS: Hemoglobin 6.4 GM/DL (12.0-16.0)
[2019-05-21] MEDS: INSULIN LISPRO 100 UNIT/ML SUBCUT SCH (18:54)
[2019-05-21 22:44] LABS: Hematocrit 25.7 VOL% (35.7-47.0)
[2019-05-22] MEDS: DEXTROSE 5% NACL 0.45% 1,000 ML IV SCH ×5 (01:07→19:55)
[2019-05-22] MEDS: INSULIN LISPRO 100 UNIT/ML SUBCUT SCH ×4 (01:07→17:23)
[2019-05-22 04:47] LABS: Basophils # 0.1 10*3/uL (0.0-0.2); Basophils % 0.8 % (0.0-0.8); Eosinophils # 0.3 10*3/uL (0.0-0.87); Hematocrit 26.8 VOL% (35.7-47.0); Hemoglobin 8.4 GM/DL (12.0-16.0); Immature Granulocytes % 0.2 %; Immature Granulocytes Absolute 0.01 #; Lymphocytes # 1.2 10*3/uL (1.4-4.0); Lymphocytes % 18.7 % (21.3-54.2); Mean Corpuscular HGB Conc 31.3 GM/DL (32-36); Mean Corpuscular Volume 91.2 FL (87-102); Mean Platelet Volume 9.4 FL (9.6-12.0); Monocytes % 8.7 % (1.7-12.7); Neutrophils % 67.6 % (38.7-73.9); Platelet Count 381 T/CUMM (130-400); Red Blood Count 2.94 MC/CUMM (3.8-5.5); Red Cell Distribution Width 15.9 % (9.3-17.3); White Blood Count 6.5 T/CUMM (4-12)
[2019-05-22 05:04] LABS: Anisocytosis 1+; Hypochromasia 1+; Microcytosis 1+
[2019-05-22 05:05] LABS: Platelet Estimate Normal
[2019-05-22 05:06] LABS: Calcium 7.9 MG/DL (8.5-10.1); Osmolality,Calculated 283.3 MOS/KG (273-304)
[2019-05-22] MEDS ORDERED: LIDOCAINE 2% 5 ML VIAL ONE (10:00)
[2019-05-22] MEDS ORDERED: propofoL 200 MG/20 ML VIAL IV ONE (10:00)
[2019-05-22] MEDS: BISACODYL 5 MG TABLET PO SCH ×2 (10:12→18:03)
[2019-05-22] MEDS: POLYETHYLENE GLYCOL POWDER 17 GM PACK PO SCH ×2 (10:13→22:23)
[2019-05-22 10:59] LABS: Hematocrit 30.5 VOL% (35.7-47.0); Hemoglobin 9.4 GM/DL (12.0-16.0)
[2019-05-22] MEDS ORDERED: POLYETHYLENE GLYCOL POWDER 255 GM BOTTLE PO ONE (18:00)
[2019-05-22] MEDS ORDERED: MAGNESIUM CITRATE 300 ML BOTTLE PO ONE (21:00)
[2019-05-22] MEDS: PANTOPRAZOLE 40 MG VIAL IV SCH (22:18)
[2019-05-23] MEDS: INSULIN LISPRO 100 UNIT/ML SUBCUT SCH ×4 (00:45→17:40)
[2019-05-23] MEDS: BISACODYL 5 MG TABLET PO SCH (01:38)
[2019-05-23] MEDS: DEXTROSE 5% NACL 0.45% 1,000 ML IV SCH (03:41)
[2019-05-23] MEDS ORDERED: LACTATED RINGERS 1,000 ML IV SCH (08:00)
[2019-05-23] MEDS: POLYETHYLENE GLYCOL POWDER 17 GM PACK PO SCH ×2 (08:43→20:56)
[2019-05-23] MEDS ORDERED: LABETALOL 100 MG/20 ML VIAL IV ONE (09:00)
[2019-05-23] MEDS ORDERED: propofoL 200 MG/20 ML VIAL IV ONE (09:00)
[2019-05-23] MEDS ORDERED: ETOMIDATE 20 MG/10 ML VIAL IV ONE (09:00)
[2019-05-23] MEDS ORDERED: LIDOCAINE 2% 5 ML VIAL ONE (09:00)
[2019-05-23] MEDS: PANTOPRAZOLE 40 MG VIAL IV SCH (09:57)
[2019-05-23] MEDS: LOSARTAN 25 MG TABLET PO SCH (11:58)
[2019-05-23] MEDS: PANTOPRAZOLE 40 MG TABLET PO SCH ×2 (11:58→17:41)
[2019-05-23] MEDS: carvediloL 6.25 MG TABLET PO SCH ×2 (11:58→17:41)
[2019-05-23] MEDS: cilostazoL 100 MG TABLET PO SCH (20:56)
[2019-05-23] MEDS ORDERED: carvediloL 6.25 MG TABLET PO SCH (21:00)
[2019-05-23] MEDS ORDERED: SERTRALINE 25 MG TABLET PO SCH (21:00)
[2019-05-24] MEDS: INSULIN LISPRO 100 UNIT/ML SUBCUT SCH ×3 (01:08→12:53)
[2019-05-24] MEDS: PANTOPRAZOLE 40 MG TABLET PO SCH (06:28)
[2019-05-24] MEDS ORDERED: MAGNESIUM CHLORIDE 64 MG TABLET PO SCH (09:00)
[2019-05-24] MEDS ORDERED: EZETIMIBE 10 MG TABLET PO SCH (09:00)
[2019-05-24] MEDS ORDERED: LOSARTAN 25 MG TABLET PO SCH (09:00)
[2019-05-24] MEDS ORDERED: ATORVASTATIN 80 MG TABLET PO SCH (09:00)
[2019-05-24] MEDS: POLYETHYLENE GLYCOL POWDER 17 GM PACK PO SCH (09:26)
[2019-05-24] MEDS: cilostazoL 100 MG TABLET PO SCH (09:26)
[2019-05-24] MEDS: LOSARTAN 25 MG TABLET PO SCH (09:26)
[2019-05-24] MEDS: carvediloL 6.25 MG TABLET PO SCH (09:26)
[2019-05-24 11:51] VITALS: BP 111/96
== END 2019-05-24 14:08 | disposition home or self-care (01) | DRG 378 ==
LOC: N.ED 13:01 → N.EDINP 14:30 → SUATTDRO 14:30 → N.5E 15:22 → N.ICU 16:33 → N.CC 05-22 08:51 → N.2E 05-22 14:07
PROVIDERS: ADMIT Internal Medicine; ATTEND Family Medicine

== ENCOUNTER 2019-08-03 16:33 | Inpatient (IN) ==
[2019-08-03 17:44] LABS: Basophils # 0.1 10*3/uL (0.0-0.2); Basophils % 0.7 % (0.0-0.8); Eosinophils # 0.4 10*3/uL (0.0-0.87); Eosinophils % 5.6 % (0.00-10.9); Hematocrit 40.4 VOL% (35.7-47.0); Hemoglobin 12.2 GM/DL (12.0-16.0); Immature Granulocytes % 0.1 %; Immature Granulocytes Absolute 0.01 #; Lymphocytes # 1.4 10*3/uL (1.4-4.0); Lymphocytes % 19.5 % (21.3-54.2); Mean Corpuscular HGB Conc 30.2 GM/DL (32-36); Mean Corpuscular Volume 92.9 FL (87-102); Monocytes % 6.9 % (1.7-12.7); Neutrophils % 67.2 % (38.7-73.9); Platelet Count 289 T/CUMM (130-400); Red Blood Count 4.35 MC/CUMM (3.8-5.5); Red Cell Distribution Width 19.1 % (9.3-17.3); White Blood Count 7.1 T/CUMM (4-12)
[2019-08-03 17:52] LABS: INR 1.1; PT Patient Result 11.4 SECS (9.8-11.9); Partial Thromboplastin Time 36.7 SECS (23.9-33.8)
[2019-08-03 17:58] LABS: Alanine Aminotransferase 15 U/L (13-56); Albumin 3.7 G/DL (3.4-5.0); Alkaline Phosphatase 83 U/L (45-117); Aspartate Amino Transferase 20 U/L (0-37); Blood Urea Nitrogen 20 MG/DL (7-18); Calcium 9.5 MG/DL (8.5-10.1); Estimated Glom Filtration Rate 45 ML/MIN; Glucose 171 MG/DL (74-106); Osmolality,Calculated 283.5 MOS/KG (273-304); Total Protein 7.7 G/DL (6.4-8.3); Troponin I < 0.015 NG/ML (0.00-0.045)
[2019-08-03 18:53] LABS: Apearance,Urine CLEAR (Clear); Bilirubin,Urine Negative (Negative); Blood, Urine Negative (Negative); Glucose,Urine (UA) Negative (Negative); Ketones,Urine Negative (Negative); Mucus,Urine Occasional /LPF (Occasional); Nitrite,Urine Negative (Negative); Protein,Urine Negative; Squamous Epithelial Cell,Urine Occasional /HPF (0-10); Urine Color Yellow (Yellow); Urine Specific Gravity 1.013 (1.001-1.035); Urine Urobilinogen < 2.0 EU/DL (0.2-1.0)
[2019-08-03] MEDS ORDERED: GLUCAGON 1 MG VIAL IM PRN (20:19)
[2019-08-03] MEDS ORDERED: DEXTROSE 50% 25 GM/50 ML VIAL IV PRN (20:19)
[2019-08-03] MEDS ORDERED: traZODone 50 MG TABLET PO PRN (20:38)
[2019-08-03] MEDS ORDERED: DEXTROSE 10% 250 ML BAG IV PRN (21:16)
[2019-08-03] MEDS: SODIUM CHLORIDE 0.45% 1,000 ML IV SCH (23:11)
[2019-08-03] MEDS: cilostazoL 100 MG TABLET PO SCH (23:37)
[2019-08-03] MEDS: INSULIN REGULAR 100 UNIT/ML SUBCUT SCH (23:37)
[2019-08-04 06:17] LABS: Basophils # 0.1 10*3/uL (0.0-0.2); Basophils % 0.7 % (0.0-0.8); Eosinophils # 0.4 10*3/uL (0.0-0.87); Hematocrit 36.8 VOL% (35.7-47.0); Hemoglobin 11.1 GM/DL (12.0-16.0); Immature Granulocytes % 0.3 %; Immature Granulocytes Absolute 0.02 #; Lymphocytes # 1.7 10*3/uL (1.4-4.0); Lymphocytes % 23.2 % (21.3-54.2); Mean Corpuscular HGB Conc 30.2 GM/DL (32-36); Mean Corpuscular Volume 90.9 FL (87-102); Mean Platelet Volume 10.7 FL (9.6-12.0); Monocytes % 8.9 % (1.7-12.7); Neutrophils % 61.9 % (38.7-73.9); Platelet Count 245 T/CUMM (130-400); Red Blood Count 4.05 MC/CUMM (3.8-5.5); Red Cell Distribution Width 19.1 % (9.3-17.3); White Blood Count 7.2 T/CUMM (4-12)
[2019-08-04 06:43] LABS: Calcium 8.8 MG/DL (8.5-10.1); Osmolality,Calculated 282.4 MOS/KG (273-304); Risk Ratio 3.49; VLDL CHOLESTEROL 30.2 MG/DL
[2019-08-04] MEDS: INSULIN REGULAR 100 UNIT/ML SUBCUT SCH ×4 (07:50→22:15)
[2019-08-04] MEDS: SODIUM CHLORIDE 0.45% 1,000 ML IV SCH ×2 (08:49→22:13)
[2019-08-04] MEDS: LOSARTAN 25 MG TABLET PO SCH (08:51)
[2019-08-04] MEDS: cilostazoL 100 MG TABLET PO SCH ×2 (08:51→22:17)
[2019-08-04] MEDS: PANTOPRAZOLE 40 MG TABLET PO SCH (08:52)
[2019-08-04] MEDS: EZETIMIBE 10 MG TABLET PO SCH (08:52)
[2019-08-04] MEDS: carvediloL 3.125 MG TABLET PO SCH ×2 (08:52→16:56)
[2019-08-04] MEDS: ENOXAPARIN 40 MG/0.4 ML SYRINGE SUBCUT SCH (08:57)
[2019-08-04] MEDS: MAGNESIUM SULF RIDER 4 GM in PREMIX 1 EACH IV PRN (16:56)
[2019-08-05] MEDS: INSULIN REGULAR 100 UNIT/ML SUBCUT SCH ×4 (08:46→20:53)
[2019-08-05 09:10] LABS: Basophils % 0.5 % (0.0-0.8); Eosinophils # 0.4 10*3/uL (0.0-0.87); Hematocrit 37.8 VOL% (35.7-47.0); Hemoglobin 11.8 GM/DL (12.0-16.0); Immature Granulocytes % 0.3 %; Immature Granulocytes Absolute 0.02 #; Lymphocytes % 14.7 % (21.3-54.2); Mean Corpuscular HGB Conc 31.2 GM/DL (32-36); Mean Corpuscular Volume 90.2 FL (87-102); Mean Platelet Volume 10.6 FL (9.6-12.0); Monocytes % 5.1 % (1.7-12.7); Neutrophils % 73.4 % (38.7-73.9); Platelet Count 228 T/CUMM (130-400); Red Blood Count 4.19 MC/CUMM (3.8-5.5); White Blood Count 6.7 T/CUMM (4-12)
[2019-08-05 09:38] LABS: Calcium 8.9 MG/DL (8.5-10.1); Osmolality,Calculated 283.7 MOS/KG (273-304)
[2019-08-05] MEDS: SODIUM CHLORIDE 0.45% 1,000 ML IV SCH (09:51)
[2019-08-05] MEDS: cilostazoL 100 MG TABLET PO SCH ×2 (09:54→21:03)
[2019-08-05] MEDS: PANTOPRAZOLE 40 MG TABLET PO SCH (09:54)
[2019-08-05] MEDS: LOSARTAN 25 MG TABLET PO SCH (09:54)
[2019-08-05] MEDS: EZETIMIBE 10 MG TABLET PO SCH (09:54)
[2019-08-05] MEDS: carvediloL 3.125 MG TABLET PO SCH ×2 (09:54→17:52)
[2019-08-05] MEDS: ENOXAPARIN 40 MG/0.4 ML SYRINGE SUBCUT SCH (09:54)
[2019-08-05] MEDS: MAGNESIUM SULF RIDER 2 GM in PREMIX 1 EACH IV PRN (15:52)
[2019-08-05] MEDS ORDERED: SIMVASTATIN 20 MG TABLET PO SCH (21:00)
[2019-08-06 07:14] LABS: Basophils % 0.6 % (0.0-0.8); Eosinophils # 0.5 10*3/uL (0.0-0.87); Eosinophils % 6.7 % (0.00-10.9); Hematocrit 38.1 VOL% (35.7-47.0); Hemoglobin 11.6 GM/DL (12.0-16.0); Immature Granulocytes % 0.3 %; Immature Granulocytes Absolute 0.02 #; Lymphocytes # 1.2 10*3/uL (1.4-4.0); Mean Corpuscular HGB Conc 30.4 GM/DL (32-36); Mean Corpuscular Volume 91.6 FL (87-102); Mean Platelet Volume 10.8 FL (9.6-12.0); Monocytes % 7.8 % (1.7-12.7); Neutrophils % 67.6 % (38.7-73.9); Platelet Count 251 T/CUMM (130-400); Red Blood Count 4.16 MC/CUMM (3.8-5.5)
[2019-08-06 07:26] LABS: Calcium 9.3 MG/DL (8.5-10.1); Osmolality,Calculated 276.8 MOS/KG (273-304)
[2019-08-06] MEDS: EZETIMIBE 10 MG TABLET PO SCH (08:16)
[2019-08-06] MEDS: INSULIN REGULAR 100 UNIT/ML SUBCUT SCH ×3 (08:16→16:17)
[2019-08-06] MEDS: carvediloL 3.125 MG TABLET PO SCH (08:16)
[2019-08-06] MEDS: PANTOPRAZOLE 40 MG TABLET PO SCH (08:16)
[2019-08-06] MEDS: cilostazoL 100 MG TABLET PO SCH (08:16)
[2019-08-06] MEDS: LOSARTAN 25 MG TABLET PO SCH (08:16)
[2019-08-06] MEDS: ENOXAPARIN 40 MG/0.4 ML SYRINGE SUBCUT SCH (08:16)
[2019-08-06] MEDS ORDERED: ASPIRIN EC 81 MG TABLET PO SCH (14:30)
[2019-08-06] MEDS: MAGNESIUM SULF RIDER 4 GM in PREMIX 1 EACH IV PRN (14:50)
[2019-08-06] MEDS: MAGNESIUM SULF RIDER 2 GM in PREMIX 1 EACH IV PRN (14:54)
[2019-08-06 15:43] VITALS: BP 102/53
== END 2019-08-06 16:30 | disposition home or self-care (01) | DRG 69 ==
LOC: N.ED 16:33 → SUATTDRO 20:19 → N.EDINP 20:19 → N.3E 21:07
PROVIDERS: ADMIT Internal Medicine; ATTEND Family Medicine